=== PATIENT | female | born 1950 | race Caucasian/White ===

== ENCOUNTER 2017-05-05 10:42 | Observation (INO) | payer SELFPAY ==
[~2017-05-05] VITALS: Ht 157.5 cm; Wt 125.7 kg
[~2017-05-05 10:42] MED LIST: FUROSEMIDE40 MG PO; HYZAAR 100-11 TABLET PO; LASIX20 MG PO; LOPRESSOR25 MG PO; LOSARTAN-HCTZ1 EAC2 PO; POTASSIUM CHLO20 ME2 PO; TYLENOL ARTHRI650 MG PO; TYLENOL EXTRA500 MG PO
[2017-05-05 11:33] LABS: BASOPHIL COUNT 0.1 K/uL (0-0.1); EOSINOPHIL (%) 2.5 % (0-5); EOSINOPHIL COUNT 0.2 K/uL (0-0.3); HEMATOCRIT 40.2 % (36.0-46.0); IMMATURE GRANULOCYTE (%) 0.2 % (0.0-0.7); INSTRUMENT ABS NEUTROPHIL CT 4.2 K/uL; LYMPHOCYTE COUNT 1.1 K/uL (1.0-2.8); MCH 30.3 PG (29.0-34.0); MCHC 31.8 G/DL (30.0-36.0); MEAN PLAT.VOLUME 11.3 uM^3 (9.5-12.4); MONOCYTE (%) 9.3 % (3-12); MONOCYTE COUNT 0.6 K/uL (0-0.8); NEUTROPHIL COUNT 4.2 K/uL (1.8-6.4); PLATELET COUNT 165 K/uL (156-360); RBC DIS.WIDTH-CV 14.2 % (11.8-14.6); RBC DIS.WIDTH-SD 49.3 % (39-53); RED BLOOD COUNT 4.23 M/uL (3.80-5.20)
[2017-05-05 11:45] LABS: CHLORIDE 108 mEq/L (99-109); POTASSIUM 4.6 mEq/L (3.7-5.4); SODIUM 142 mEq/L (136-147)
[2017-05-05 11:46] LABS: GLUCOSE 105 mg/dL (70-99)
[2017-05-05 11:48] LABS: ANION GAP 6 MEQ/L (2-14)
[2017-05-05 11:50] LABS: GFR ESTIMATE (CALCULATED) > 59 mL/min/
[2017-05-05 11:51] LABS: UREA NITROGEN (BUN) 34 mg/dL (9-23)
[2017-05-05 11:55] LABS: TROP-I INTERPRETATION NEGATIVE; TROPONIN-I < 0.01 ng/mL (0.0-0.30)
[2017-05-05] MEDS ORDERED: DIUREX WATER P1 EACH PO (12:52)
[2017-05-05] MEDS ORDERED: TYLENOL EXTRA500 MG PO (12:53)
[2017-05-05] MEDS ORDERED: COMPLETE MULTI1 EAC1 PO (12:54)
[2017-05-05] MEDS ORDERED: FISH OIL 1,0001 EAC7 PO (12:54)
[2017-05-05] MEDS ORDERED: GARLIC100 MG PO (12:56)
[2017-05-05] MEDS ORDERED: FIBER0.4 GM PO (13:00)
[2017-05-05] MEDS ORDERED: L-LYSINE500 M1 PO (13:00)
[2017-05-05] MEDS ORDERED: VITAMIN E200 UNI2 PO (13:01)
[2017-05-05] MEDS ORDERED: VITAMIN B-1100 MG PO (13:01)
[2017-05-05 13:08] LABS: SAMPLE HEMOLYSIS CHECK 0; SAMPLE ICTERIC CHECK 0; SAMPLE LIPEMIA CHECK 0
[2017-05-05 13:14] LABS: HDL CHOLESTEROL 46 MG/DL (Desirable>=50); LDL CHOLESTEROL 77 mg/dL (Desirable<100); NON-HDL CHOLESTEROL 106 mg/dL (Desirable<160); TOTAL CHOLESTEROL 152 mg/dL (Desirable<200); TRIGLYCERIDES 145 MG/DL (Normal: <150)
[2017-05-05 13:43] VITALS: BP 183/87
[2017-05-05 13:56] LABS: Estimated Average Glucose 117 mg/dL (70-123); HEMOGLOBIN A1c (GLYCOHEMOGLOB) 5.7 % HGB (Below 5.7)
[2017-05-05 16:35] VITALS: BP 136/80
[2017-05-05 19:32] LABS: TROP-I INTERPRETATION NEGATIVE; TROPONIN-I < 0.01 ng/mL (0.0-0.30)
[2017-05-05 20:00] VITALS: BP 167/85
[2017-05-06 00:09] VITALS: BP 158/73
[2017-05-06 00:50] LABS: TROP-I INTERPRETATION NEGATIVE; TROPONIN-I < 0.01 ng/mL (0.0-0.30)
[2017-05-06 04:00] VITALS: BP 155/70
[2017-05-06 08:00] VITALS: BP 124/78
[2017-05-06] MEDS ORDERED: HYDROCHLOROTH12.5 M3 PO (08:12)
[2017-05-06] MEDS ORDERED: LOPRESSOR25 MG PO (08:12)
[2017-05-06] MEDS ORDERED: LOSARTAN POTAS100 MG PO (08:12)
[2017-05-06] MEDS ORDERED: LISINOPRIL20 MG PO (10:11)
== END 2017-05-06 12:37 | disposition home or self-care (01) ==
LOC: EME 10:42 → EDOF 12:20 → 5WEST 12:20 → EDOF 12:20 → ENRESERV 12:23 → 5WEST 13:37
PROVIDERS: Emergency Medicine; Internal Medicine
DX: I16.0 Hypertensive urgency (principal); I11.9 Hypertensive heart disease without heart failure; R07.9 Chest pain, unspecified; E66.2 Morbid (severe) obesity with alveolar hypoventilation; Z68.43 Body mass index [BMI] 50.0-59.9, adult; I27.2 Other secondary pulmonary hypertension; I34.1 Nonrheumatic mitral (valve) prolapse; G35 Multiple sclerosis; F41.9 Anxiety disorder, unspecified; Z87.891 Personal history of nicotine dependence; Z91.041 Radiographic dye allergy status; Z82.49 Family history of ischemic heart disease and other diseases of the circulatory system; Z83.3 Family history of diabetes mellitus
CPT/HCPCS: 71010; 80048; 80061; 83036; 83880; 84484; 85025; 93005; 94799; 99281; 99284; G0378

== ENCOUNTER → 2018-04-13 | Outpatient (CLI) | payer OTHER ==
[~2018-04-13] MED LIST changes: +COMPLETE MULTI1 EAC1 PO; +DIUREX WATER P1 EACH PO; +FIBER0.4 GM PO; +FISH OIL 1,0001 EAC7 PO; +GARLIC100 MG PO; +HYDROCHLOROTH12.5 M3 PO; +L-LYSINE500 M1 PO; +LISINOPRIL20 MG PO; +LOSARTAN POTAS100 MG PO; +VITAMIN B-1100 MG PO; +VITAMIN E200 UNI2 PO
== END | disposition home or self-care (01) ==
LOC: NUC 10:26
DX: J98.4 Other disorders of lung (principal)
CPT/HCPCS: 78582; A9540; A9567